=== PATIENT | male | born 1995 | race Caucasian/White ===

== ENCOUNTER 2018-12-30 06:11 | Day surgery (SDC) | payer OTHER ==
[2018-12-20 17:48] VITALS: BMI 25.8
[2018-12-30] MEDS ORDERED: BUPIVACAINE HCL/EPINEPHRINE/PF 30 ML VIAL IJ ONE (07:09)
[2018-12-30] MEDS ORDERED: EPINEPHrine 1:1,000 1 MG/1 ML - 30ML VIAL (INJECTION) ONE (07:09)
[2018-12-30] MEDS ORDERED: SUCCINYLCHOLINE CHLORIDE 200 MG/10 ML VIAL ONE (07:17)
[2018-12-30] MEDS ORDERED: PROPOFOL 20 ML ONE ×3 (07:17)
[2018-12-30] MEDS ORDERED: SODIUM CHLORIDE 0.9% P/F 10 ML VIAL IJ ONE ×2 (07:21→07:28)
[2018-12-30] MEDS ORDERED: ceFAZolin SODIUM 1 GM VIAL ONE (07:21)
[2018-12-30] MEDS ORDERED: DEXMEDETOMIDINE HCL 200 MCG/2 ML IVPB ONE (07:23)
[2018-12-30] MEDS ORDERED: BUPIVACAINE HCL/PF (5 MG/ML) 30 ML VIAL IJ ONE (07:23)
[2018-12-30] MEDS ORDERED: MIDAZOLAM HCL 2 MG/2 ML SINGLE DOSE VIAL ONE ×2 (07:24→07:36)
[2018-12-30] MEDS ORDERED: GLYCOPYRROLATE 0.2 MG/1 ML VIAL ONE (08:14)
[2018-12-30] MEDS ORDERED: oxyCODONE HCL 10 MG SUSTAINED ACTING TABLET PO ONE ×2 (09:13→10:40)
[2018-12-30] MEDS ORDERED: oxyCODONE HCL 5 MG TABLET PO PRN ×3 (09:13→09:36)
--- NOTE | 2018-12-30 09:16 | DS ---
Physical Examination Vital Signs: Vital Signs Temperature 98.2 F 12/30/18 06:30 Pulse Rate 68 12/30/18 06:30 Respiratory Rate 18 12/30/18 06:30 Blood Pressure 106/75 12/30/18 06:30 O2 Sat by Pulse Oximetry (%) 97 12/30/18 06:30 Discharge Summary Reason For Visit: RIGHT SHOULDER AC JOINT OA Condition: Good - Instructions Diet, Activity, Other Instructions: Post Operative Instructions: Shoulder Arthroscopy Dr Jatin Mcdonald 1. Pain following a Shoulder Arthroscopy is variable and can be significant. Some patients will have more pain than others. You have been provided with a prescription for medication that contains a narcotic. You are not allowed to drive while on this medication. You should take Tylenol (Acetaminophen) when taking the pain medication ( it will result in an overdose). You should also take medications such as Ibuprofen or Naprosyn in addition to the pain medicine if you do not have any problems with the NSAID class of medications. 2. Apply ice to the shoulder for 15 minutes every hour. You may continue this for as many days as necessary. 3. You may find sleeping on an incline (reclining chair) to be more comfortable for the first few days. 4. You may remove your sling when the arm is comfortable. 5. You may use the arm as tolerated. 6. You may remove the bandages in 48 hours. You may shower at that point. 7. Place band-aids on the glue after your shower.Do not put any creams or lotions on the incisions. 8. Please call the office to schedule a visit to have your sutures removed. 9. If for any reason you believe you may have an infection or are concerned, please feel free to call me. I can be reached through our office number 24 hours a day. 10. Please call our office with any questions; we will review the surgical findings during your post-operative visit. Disposition: HOME - Home Medications Comprehensive Discharge Medication List: Ambulatory Orders NK [No Known Home Medication] 12/20/18
--- NOTE | 2018-12-30 09:16 | OP ---
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
[2018-12-30] MEDS ORDERED: ONDANSETRON 4 MG/2 ML VIAL ONE (09:32)
--- NOTE | 2018-12-30 09:34 | SURG ---
Surgery Corporate Quality Assurance Manager Note Corporate Quality Assurance Manager: Fercho Nagy PA-C Date of Service: 12/30/18 Diagnosis: Right shoulder ACJ Joint arthrosis Procedure: Right shoulder arthroscopy and DCE I was present for the entirety of the operative procedure. For further detail, please refer to operative report. Visit type - Case Type Case Type: Scheduled - New patient This patient is new to me today: Yes Date on this admission: 12/30/18
[2018-12-30] MEDS ORDERED: ONDANSETRON 4 MG/2 ML VIAL IVPUSH PRN (09:36)
[2018-12-30] MEDS ORDERED: PROMETHAZINE HCL 25 MG/1 ML VIAL IVPUSH PRN (09:36)
[2018-12-30] MEDS ORDERED: ACETAMINOPHEN 325 MG TABLET (FP) PO SCH (09:45)
[2018-12-30 09:53] VITALS: TEMP 97.5
[2018-12-30] MEDS ORDERED: oxyCODONE HCL 10 MG SUSTAINED ACTING TABLET ONE (10:38)
[2018-12-30 13:45] VITALS: BP 118/71; PULSE 68
== END 2018-12-30 11:30 | disposition home or self-care (01) ==
LOC: FASU 06:11
PROVIDERS: ATTEND Orthopaedic Surgery
PROC: 0PB94ZZ Excision of Right Clavicle, Percutaneous Endoscopic Approach (ICD-10-PCS; principal; 2018-12-30 08:39)
DX: M19.011 Primary osteoarthritis, right shoulder (principal); M65.811 Other synovitis and tenosynovitis, right shoulder
CPT/HCPCS: 94760